=== PATIENT | female | born 1960 | race Caucasian/White ===

== ENCOUNTER 2017-04-17 21:25 | Emergency (ER) | payer OTHER ==
[2017-04-17 21:34] VITALS: BP 145/88
--- NOTE | 2017-04-17 22:00 | RAD ---
Indication: Left ankle injury. 3 views of left ankle demonstrates transverse nondisplaced fracture distal fibula with soft tissue swelling. No significant displacement is noted. Ankle mortise is intact. IMPRESSION: Nondisplaced fracture distal fibula with soft tissue swelling.
--- NOTE | 2017-04-19 08:11 | UC ---
Lower Extremity/Ankle HPI - HPI Summary HPI Summary: Pt present to with left ankle pain. approx 830pm pt was walking dogs when rolled foot off edge of street. injury to left lateral ankle. Pt fell. no other injury. No strike head. no loc no blood heent no knee, no hip or back pain Pt also with abraison right knee. last tdap 02/2017. 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 this visit - History of Current Complaint Chief Complaint: UCLowerExtremity Stated Complaint: ANKLE INJURY Time Seen by Provider: 04/17/17 21:50 Hx Obtained From: Patient Onset/Duration: Sudden Onset Severity Initially: Mild Severity Currently: Mild Pain Intensity: 3 Pain Scale Used: 0-10 Numeric - Allergies/Home Medications Allergies/Adverse Reactions: Allergies Allergy/AdvReac Type Severity Reaction Status Date / Time Beta-Blockers Allergy Palpitation Verified 04/17/17 21:37 (Beta-Adrenergic Bloc s epinephrine Allergy Palpitation Verified 04/17/17 21:37 s Latex, Natural Rubber Allergy Rash Verified 04/17/17 21:37 Penicillins Allergy Difficulty Verified 04/17/17 21:37 Breathing soybean Allergy Nausea And Verified 04/17/17 21:37 Vomiting PMH/Surg Hx/FS Hx/Imm Hx Previously Healthy: Yes - Surgical History Surgical History: Yes Surgery Procedure, Year, and Place: 1998 LSP SURGERY, [facility]. 2010 RIGHT CARPAL TUNNEL, [facility]. 01/04/2013 RIGHT TERMINAL DUCT EXCISION, ([facility]) - NO METAL - NO IMPLANTS. RIGHT HAND TRIGGER FINGER RELEASE 02/28/16 - Family History Known Family History: Positive: Hypertension - Social History Occupation: Employed Full-time Lives: With Family Alcohol Use: Rare Substance Use Type: None Smoking Status (MU): Never Smoked Tobacco Have You Smoked in the Last Year: No Review of Systems Constitutional: Negative Skin: Other - abraison right knee Motor: Other - left ankle Neurological: Negative Psychological: Negative All Other Systems Reviewed And Are Negative: Yes Physical Exam Triage Information Reviewed: Yes Appearance: Well-Appearing, No Pain Distress Vital Signs: Initial Vital Signs Temp 98.1 F 04/17/17 21:30 Pulse 74 04/17/17 21:30 Resp 21 04/17/17 21:30 BP 145/88 04/17/17 21:30 Pulse Ox 98 04/17/17 21:30 Vital Signs Reviewed: Yes Eye Exam: Normal ENT Exam: Normal ENT: Positive: Hearing grossly normal, Other - no hemotymp b/l no septal hematoma b/l Dental Exam: Normal Neck exam: Normal Neck: Positive: 1 Respiratory Exam: Normal Respiratory: Positive: Chest non-tender, Lungs clear, Normal breath sounds, No respiratory distress Cardiovascular Exam: Normal Cardiovascular: Positive: RRR, No Murmur, Other: - 2+ DP, PT CBT < 2 sec Abdominal Exam: Normal Abdomen Description: Positive: Nontender, No Organomegaly, Soft Musculoskeletal Exam: Normal Musculoskeletal: Positive: Other: - RLE - Full AROM LLE: + SLE, + external/ internal rotation hip, + flex/ext knee + TTP left lateral malleolus inferior and anterior malleoulus no pain along talus, tarsale Neurological: Positive: Other: - + sensation throughout foot Psychological Exam: Normal Psychological: Positive: Normal Response To Family Skin: Positive: Other - non suturable superficial abraison right knee Procedures - Splinting Hand-Made Type: fiberglass Splint: posterior walking Pre-Proc Neuro Vasc Exam: normal Post-Proc Neuro Vasc Exam: normal Diagnostics - Radiology No standard instances Xray Interpretation: Positive (See Comments) - no displaced fibular fx Radiology Interpretation Completed By: Radiologist Re-Evaluation - Re-Evaluation First Eval Comment: reviewed imaging with pt. pt uncomfortable in CAM. splint made - pt reports improved. crutches. ice. elevate. ortho fu. pt declined additional analgesia Lower Extremity Course/Dx - Course Course Of Treatment: Pt tripped while walking dogs this evening. pt with pain and edema left lateral ankle. abraison right knee. tdap utd. no other injuries noted on exam. will image. ice. elevate - Differential Dx/Diagnosis Provider Diagnoses: lateral malleolus fx. fall. abraison Discharge - Discharge Plan Condition: Stable Disposition: HOME Patient Education Materials: Ankle Fracture (ED) Referrals: Yasmin Johansen MD [Primary Care Provider] - Teddy Krause MD [Medical Doctor] - As Soon As Possible Additional Instructions: Use crutches until you are evaluted in follow-up by orthopedic - Okay to touch your toe down for balance - do not put weight on your foot Elevate your ankle to help decrease swelling and pain Okay to alternate ibuprofen (advil, Motrin) 600mg and tylenol every 3 hours for pain Take with food. Contact the orthopedic group tomorrow to schedule a follow-up appointment. contact the orthopedic group or return with questions or concerns
== END 2017-04-17 23:05 | disposition home or self-care (01) ==
LOC: UCEAST 21:25
DX: S82.832A Other fracture of upper and lower end of left fibula, initial encounter for closed fracture (principal); S80.211A Abrasion, right knee, initial encounter; X58.XXXA Exposure to other specified factors, initial encounter; Y93.K1 Activity, walking an animal; Y92.410 Unspecified street and highway as the place of occurrence of the external cause; Z88.0 Allergy status to penicillin; Z88.8 Allergy status to other drugs, medicaments and biological substances; Z91.040 Latex allergy status
CPT/HCPCS: 99214; G0463

== ENCOUNTER 2023-04-26 11:21 | Observation (INO) ==
[2023-04-26] MEDS: Acetaminophen IV 1 GM/100ML 1,000 MG/100 ML BAG IV ONE (12:01)
[2023-04-26] MEDS ORDERED: Ondansetron 4 mg VIAL 2 MG/ML 2 ml VIAL IV PRN ×2 (12:01→20:19)
[2023-04-26] MEDS ORDERED: Naloxone 0.4 mg VIAL 0.4 mg/ml 1 ml VIAL IV PRN (12:01)
[2023-04-26] MEDS ORDERED: ceFAZolin 2 GM in NS PREMIX 2 GM/100 ML BAG IVPB ONE (12:09)
[2023-04-26] MEDS ORDERED: Scopolamine 1 mg/72hr PATCH ONE (12:09)
[2023-04-26] MEDS: Lactated Ringers 1000 ml BAG 1,000 ML IV SCH ×2 (12:13→22:37)
[2023-04-26] MEDS: Scopolamine 1 mg/72hr PATCH TRANSDERM ONE (12:13)
[2023-04-26] MEDS: Buffered Lidocaine 1% SYRIN 1 ml INTRADERM ONE (12:13)
[2023-04-26 12:21] LABS: Rapid COVID-19 Molecular Detected (Undetected)
[2023-04-26] MEDS ORDERED: NS 0.45% 1000 ml BAG 1,000 ML IV SCH (13:00)
[2023-04-26] MEDS ORDERED: fentaNYL 100 mcg/2 ml 50 MCG/ML VIAL ONE ×2 (14:30→20:30)
[2023-04-26] MEDS ORDERED: Rocuronium 50 mg VIAL 10 mg/ml 5 ml VIAL (50 mg) ONE ×2 (14:31→18:25)
[2023-04-26] MEDS ORDERED: Midazolam 2 mg/2 ml VIAL 1 mg/ml 2 ml VIAL (2 mg) ONE (14:32)
[2023-04-26] MEDS ORDERED: Bupivacaine 0.25% EPI 200,000 30 ML SDV ONE (14:39)
[2023-04-26] MEDS ORDERED: HYDROmorphone 0.5 MG/0.5 ML SYRINGE ONE ×2 (15:31→18:21)
[2023-04-26] MEDS ORDERED: Vancomycin 1,000 MG VIAL ONE (18:32)
[2023-04-26] MEDS ORDERED: ceFAZolin VIAL VIAL ONE (18:50)
[2023-04-26] MEDS ORDERED: Ondansetron 4 mg VIAL 2 MG/ML 2 ml VIAL ONE ×2 (18:53→19:54)
[2023-04-26] MEDS ORDERED: Metoclopramide 5 MG/ML VIAL (10 mg) ONE (19:54)
[2023-04-26] MEDS: Metoclopramide 5 MG/ML VIAL (10 mg) IV PRN (19:56)
[2023-04-26] MEDS ORDERED: Magnesium Hydroxide LIQ 30 ML UDC PO PRN (20:19)
[2023-04-26] MEDS ORDERED: Lactulose 30 ml UDC PO PRN (20:19)
[2023-04-26] MEDS ORDERED: Ondansetron ODT 4 mg TAB 4 MG TAB PO PRN (20:19)
[2023-04-26] MEDS ORDERED: Morphine 2 MG/ML SYRINGE IV PRN (20:27)
[2023-04-26] MEDS: fentaNYL 100 mcg/2 ml 50 MCG/ML VIAL IV PRN (20:36)
[2023-04-26] MEDS ORDERED: NF:Ipratropium HFA INHALER(NF) (ALTERNATIVE = NEBS) INH PRN (20:36)
[2023-04-26] MEDS: Magnesium Hydroxide LIQ 30 ML UDC PO SCH (22:33)
[2023-04-26] MEDS: ceFAZolin 1 GM ADVAN 1 GM in NS 0.9% 50 ML 50 ML IVPB SCH (22:49)
[2023-04-27 06:56] LABS: Hematocrit 27.5 % (35-45); Hemoglobin 9.3 g/dL (11.5-14.3); Mean Platelet Volume 9.5 fL (7.5-11.2); Platelet Count 148 10^3/uL (150-450)
[2023-04-27 07:31] LABS: Creatinine, Serum 0.78 mg/dL (0.51-0.95); Potassium 4.6 mmol/L (3.5-5.0); eGFR CKD-EPI 86.9 (>60)
[2023-04-27] MEDS: Insulin GLARGINE 100 un/ml 10 ml VIAL SUBCUT SCH (08:00)
[2023-04-27] MEDS: Cholecalciferol (VIT D3) 1,000 unit TAB PO SCH (08:00)
[2023-04-27] MEDS: Vitamin THERAPEUTIC TAB PO SCH (08:01)
[2023-04-27 13:47] VITALS: BP 79/51
[2023-04-27] MEDS ORDERED: ESTRADIOL VAG CM VAGINAL SCH (21:00)
== END 2023-04-27 15:35 | disposition home or self-care (01) ==
LOC: SSU 11:21 → OR 11:21
PROVIDERS: ADMIT Orthopaedic Surgery; ATTEND Orthopaedic Surgery